=== PATIENT | female | born 1960 | race Caucasian/White ===

== ENCOUNTER 2019-09-24 22:29 | Inpatient (IN) ==
[2019-09-24] MEDS ORDERED: MORPHINE SULFATE 4 MG/ML SYRG IM ONE (22:52)
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
[2019-09-24 23:04] LABS: Hematocrit 41.5 % (37.0-47.0); Hemoglobin 13.8 gm/dL (12.5-16.0); Mean Corpuscular Hemoglobin 30.9 pg (27-31); Mean Corpuscular Hgb Conc 33.3 g/dl (32-36); Neutrophil # 6.5 K/mm3 (1.3-6.0); Neutrophil % 74.8 % (42-75.0); Platelet Count 230 K/mm3 (150-450); Red Blood Count 4.46 M/mm3 (4.2-5.4); Red Cell Distribution Width 12.3 % (11.5-14.0); White Blood Count 8.7 K/mm3 (4.0-10.5)
[2019-09-24] MEDS ORDERED: ONDANSETRON HCL/PF 2 MG/ML VIAL IV ONE (23:09)
[2019-09-24 23:18] LABS: Anion Gap 13.3 mmol/L (6.8-13.8); BUN/Creatinine Ratio 13.5 (9.0-21.6); Bilirubin, Total 1.1 mg/dL (0.0-1.1); Ca. Corrected For Albumin 9.2 mg/dL (8.4-10.2); Calcium * 9.5 mg/dL (7.9-10.9); Carbon Dioxide 27.7 mmol/L (24-32.6); Total Protein 7.6 gm/dL (6.2-8.2)
[2019-09-24] MEDS ORDERED: HYDROmorphone HCL 1 MG/ML DISP.SYRIN IV ONE (23:40)
[2019-09-25] MEDS ORDERED: HYDROmorphone HCL 1 MG/ML DISP.SYRIN IV ONE (01:01)
[2019-09-25] MEDS ORDERED: ONDANSETRON HCL/PF 2 MG/ML VIAL IV PRN (01:34)
[2019-09-25] MEDS ORDERED: MORPHINE SULFATE 4 MG/ML SYRG IV PRN (01:34)
[2019-09-25] MEDS ORDERED: HYDROmorphone HCL 1 MG/ML DISP.SYRIN IV PRN (01:34)
[2019-09-25] MEDS ORDERED: NORMAL SALINE 1,000 ML IV ONE (01:40)
[2019-09-25 06:25] LABS: Hematocrit 44.3 % (37.0-47.0); Hemoglobin 14.2 gm/dL (12.5-16.0); Mean Cell Volume 94.5 fl (78-100); Mean Corpuscular Hemoglobin 30.3 pg (27-31); Mean Corpuscular Hgb Conc 32.1 g/dl (32-36); Mean Platelet Volume 10.4 fl (8-12.5); Neutrophil # 6.3 K/mm3 (1.3-6.0); Neutrophil % 76.8 % (42-75.0); Platelet Count 214 K/mm3 (150-450); Red Blood Count 4.69 M/mm3 (4.2-5.4); Red Cell Distribution Width 12.1 % (11.5-14.0); White Blood Count 8.3 K/mm3 (4.0-10.5)
[2019-09-25 06:41] LABS: Albumin * 3.9 gm/dl (3.4-5.0); Anion Gap 11.2 mmol/L (6.8-13.8); BUN/Creatinine Ratio 14.5 (9.0-21.6); Bilirubin, Total 1.6 mg/dL (0.0-1.1); Calcium * 9.2 mg/dL (7.9-10.9); Carbon Dioxide 27.7 mmol/L (24-32.6); Potassium 3.9 mmol/L (3.4-4.6); Total Protein 7.4 gm/dL (6.2-8.2)
[2019-09-25] MEDS: MORPHINE SULFATE 4 MG/ML SYRG IV PRN ×4 (06:54→21:22)
[2019-09-25] MEDS: ONDANSETRON HCL/PF 2 MG/ML VIAL IV PRN ×3 (06:55→19:21)
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
--- NOTE | 2019-09-25 09:31 | CONS ---
HPI - General Date of Service: 09/25/19 Source: patient, family, RN/, RN notes reviewed, old records Exam Limitations: other - She has received pain medication - History of Present Illness Initial Comments: She reports that yesterday "she did did not feel well". She ate some crackers and pairs. She apparently developed some abdominal discomfort yesterday afternoon. She tried to eat some mashed potatoes for supper but then got nauseated and vomited. The pain continued and became worse. The pain was constant across the lower abdomen. She presented to the emergency room. She was found to have elevated liver function studies and a CT scan of the abdomen revealed a dilated common bile duct. She was admitted. Labs this morning show increase in bilirubin from 1.1 to 1.6. Her ALT has increased from 564 to 571. AST is decreased from 330 to 327 and alk phos has decreased from 453 to 450. Currently she has received pain medication and states her pain is some better. She has been to the emergency room twice on 09/13/2019 and 09/15/2019 for severe epigastric pain. On her initial visit she was having pain in the chest and they checked cardiac enzymes and EKG which were normal. CMP was normal. The pain went away. On the second occasion she was evaluated with ultrasound which showed stones. Liver function studies on both visits were normal. She has had some indigestion and nausea and bloating in the past but nothing like this. She is not bothered by heartburn and denies dysphagia or odynophagia. Her bowels used to be very regular but then more recently she is only been going twice a week because "she is not eating good". Her last bowel movement was on 09/21/2019. She was seen by me in the office on 09/21/2019. At that time discussion was had about laparoscopic cholecystectomy in which she was scheduled for that procedure on elective basis on 10/01/2019. Allergies/Adverse Reactions: Allergies bee venom protein (honey bee) Allergy (Verified 09/21/19 11:35) Hives codeine Allergy (Verified 09/21/19 11:35) Vomiting shellfish derived Allergy (Verified 09/21/19 11:35) Vomiting Home Medications: Home Medications Medication Instructions Recorded Last Taken HYDROcodone/ACETAMINOPHEN [[place] 1 tab PO Q4H PRN #40 tab 09/15/19 Unknown 5-325] Ondansetron [Zofran Odt] 4 mg PO Q6H PRN #20 tab 09/15/19 Unknown Medications - Medications Current Medications: Current Medications Sodium Chloride (Sodium Chloride 0.9%) 1,000 mls @ 100 mls/hr IV .Q10H ONE Stop: 09/25/19 11:39 Last Admin: 09/25/19 02:04 Dose: 100 mls/hr Documented by: Morphine Sulfate (Morphine Sulfate) 4 mg IV Q3H PRN PRN Reason: Mild to Moderate Pain Stop: 10/25/19 06:44 Last Admin: 09/25/19 06:54 Dose: 4 mg Documented by: Ondansetron HCl (Zofran) 8 mg IV Q6H PRN PRN Reason: Nausea Stop: 10/25/19 06:44 Last Admin: 09/25/19 06:55 Dose: 8 mg Documented by: Review of Systems - Review of Systems Generalized/Overall Review: Absent: Chills, Fever, Diaphoresis EENTM: Present: Other - She has not had jaundice. Absent: No Symptoms Reported Respiratory: Present: No Symptoms Reported Cardiac: Present: No Symptoms Reported Abdominal: Present: Abdominal Pain Genitourinary: Present: No Symptoms Reported, Other - Denies dark urine Musculoskeletal: Present: No Symptoms Reported Neurological: Present: No Symptoms Reported Skin: Present: No Symptoms Reported Physical Examination - Exam Vital Signs: Vital Signs - Last Taken Temp 36.6 C 09/25/19 06:45 Pulse 56 L 09/25/19 06:45 Resp 12 09/25/19 06:45 BP 146/65 H 09/25/19 06:45 Pulse Ox 100 09/25/19 06:45 O2 Oxygen Delivery Method Room Air Comprehensive Narative: 09/25/19 09:38 She has received some pain medication but can answer questions Constitutional: Present: Alert, Oriented x3, Cooperative, Well nourished, Mild distress ENT Exam: Present: normal ENT inspection, other - No scleral icterus Eye Exam: bilateral eye: normal inspection Neck: Present: full range of motion, normal inspection Respiratory: Present: no respiratory distress Cardiovascular/Chest: Present: regular rate, rhythm Abdomen: Present: other - Currently she denies abdominal pain or tenderness, specifically no tenderness in the right upper quadrant Extremity: Present: normal range of motion, normal inspection Skin Exam: Present: normal color Neurologic: Present: electrical tech/project manager II-XII nml as tested, normal cerebellar test, no motor/ sensory deficits Appearance: Present: appropriate appearance, appropriate insight, neat, no memory impairment Eye contact: Present: cooperative, good eye contact, normal speech Thoughts: Present: normal thought pattern - Results and Findings: Lab/Microbiology results last 24 hrs: Abnormal/Pending Laboratory Last 24 HRS 09/25/19 09/25/19 09/24/19 06:00 06:00 23:00 Neutrophils % 76.8 H Lymphocytes % 15.3 L Neutrophils # 6.3 H Lymphocytes # 1.26 L Random Glucose 119 H 152 H Total Bilirubin 1.6 H AST 327 H 330 H ALT 571 H 564 H Alkaline Phosphatase 450 H 453 H 09/24/19 23:00 Neutrophils % Lymphocytes % 14.8 L Neutrophils # 6.5 H Lymphocytes # 1.29 L Random Glucose Total Bilirubin AST ALT Alkaline Phosphatase CT scan shows dilated common bile duct. There is no inflammation around the gal lbladder and the stones are not visible on CT. - Assessments/Findings (1) Abdominal pain Diagnosis(s): She does have gallstones on ultrasound. The dilated duct and elevated liver function studies are worrisome for a common bile duct stone. I reviewed a pamphlet on gallbladder disease again with her and her . Would recommend an MRCP, as if she does have common duct stones and ERCP would be in order. We will follow the patient. Discussed with Dr. Valles Problem: Acute
[2019-09-25 09:53] LABS: Lipase 12200 U/L (73-393)
[2019-09-25 10:26] LABS: Amylase * 2382 U/L (25-115)
--- NOTE | 2019-09-25 13:17 | PN ---
Dictated Progress Note - Date and Time Seen: Date: 09/25/19 Time: 13:04 - Progress Note Narrative: Vital Signs - Last Taken Temp 36.8 C 09/25/19 09:57 Pulse 65 09/25/19 09:57 Resp 12 09/25/19 09:57 BP 139/56 09/25/19 09:57 Pulse Ox 100 09/25/19 09:57 Abnormal/Pending Laboratory Last 24 HRS 09/25/19 09/25/19 09/25/19 06:00 06:00 06:00 Neutrophils % 76.8 H Lymphocytes % 15.3 L Neutrophils # 6.3 H Lymphocytes # 1.26 L Random Glucose 119 H Total Bilirubin 1.6 H AST 327 H ALT 571 H Alkaline Phosphatase 450 H Amylase 2382 H Lipase 93719 H 09/24/19 09/24/19 23:00 23:00 Neutrophils % Lymphocytes % 14.8 L Neutrophils # 6.5 H Lymphocytes # 1.29 L Random Glucose 152 H Total Bilirubin AST 330 H ALT 564 H Alkaline Phosphatase 453 H Amylase Lipase Her MRCP does not show stones in the duct, although it is dilated. She does have markedly elevated amylase and lipase compatible with a passed common bile duct stone. Would recommend that she be placed in inpatient status with IV fluids and n.p.o. status and pain control. She is already scheduled for cholecystectomy on 10/01/2019 depending upon her progress. Case discussed with Dr. Valles, will follow the patient
[2019-09-25] MEDS: DEXTROSE 5%-NORMAL SALINE 1,000 ML IV PRN ×2 (14:03→23:55)
[2019-09-25] MEDS: ENOXAPARIN SODIUM 40 MG/0.4 ML SYRG SC SCH (14:25)
[2019-09-26 06:44] LABS: Hematocrit 38.4 % (37.0-47.0); Hemoglobin 12.6 gm/dL (12.5-16.0); Mean Cell Volume 95.3 fl (78-100); Mean Corpuscular Hemoglobin 31.3 pg (27-31); Mean Corpuscular Hgb Conc 32.8 g/dl (32-36); Mean Platelet Volume 10.5 fl (8-12.5); Neutrophil # 3.8 K/mm3 (1.3-6.0); Neutrophil % 59.7 % (42-75.0); Platelet Count 166 K/mm3 (150-450); Red Blood Count 4.03 M/mm3 (4.2-5.4); Red Cell Distribution Width 12.2 % (11.5-14.0); White Blood Count 6.3 K/mm3 (4.0-10.5)
[2019-09-26 06:48] LABS: Anion Gap 9.2 mmol/L (6.8-13.8); BUN/Creatinine Ratio 15.4 (9.0-21.6); Bilirubin, Total 1.5 mg/dL (0.0-1.1); Ca. Corrected For Albumin 8.6 mg/dL (8.4-10.2); Calcium * 8.1 mg/dL (7.9-10.9); Carbon Dioxide 27.3 mmol/L (24-32.6); Potassium 3.5 mmol/L (3.4-4.6)
[2019-09-26] MEDS: ONDANSETRON HCL/PF 2 MG/ML VIAL IV PRN ×3 (07:03→22:27)
[2019-09-26] MEDS ORDERED: MORPHINE SULFATE 4 MG/ML SYRG IV PRN (08:52)
--- NOTE | 2019-09-26 08:53 | PN ---
Subjective - Date and Time Seen Date: 09/26/19 Time: 08:44 Subjective Narrative: patient lipase/amylase has improved. patient is comfortable but sleepy. denies abdominal pain. Objective - Review of Systems Generalized/Overall Review: Denies: Chills, Fever EENTM: Denies: Blurred Vision Respiratory: Denies: Cough, Shortness of Breath, Orthopnea Cardiac: Denies: Chest Pain, Edema, Palpitations Abdominal: Denies: Nausea, Vomiting, Abdominal Pain Genitourinary Symptoms: Denies: Urgency, Frequency Musculoskeletal Complaints: Denies: Joint Pain, Back Pain Neurological: Denies: Headache Skin: Denies: Lesions, Rash Endocrine: Denies: Intolerance to Cold, Intolerance to Heat - Vitals Vitals: Last Vital Signs Temp 36.6 C 09/26/19 07:24 Pulse 63 09/26/19 07:24 Resp 14 09/26/19 07:24 BP 149/52 H 09/26/19 07:24 Pulse Ox 99 09/26/19 07:24 - Abnormal Lab Findings Abnormal Lab Findings: Abnormal Lab Results 09/25/19 09/26/19 09/26/19 Range/Units 06:00 06:23 06:23 RBC 4.03 L (4.2-5.4) M/mm3 MCH 31.3 H (27-31) pg Monocytes % 12.4 H (0.0-9) % Chloride 108 H (97-106) mmol/L Random Glucose 121 H (70-110) mg/dL Total Bilirubin 1.5 H (0.0-1.1) mg/dL AST 398 H (0-48) U/L ALT 510 H (19-67) U/L Alkaline Phosphatase 460 H (50-170) U/L Total Protein 6.0 L (6.2-8.2) gm/dL Albumin 3.0 L (3.4-5.0) gm/dl Amylase 2382 H 505 H (25-115) U/L Lipase 39973 H 2142 H (73-393) U/L - Exam Constitutional: Present: Alert, Oriented x3, Cooperative, Somnolent ENT Exam: Present: hearing grossly normal Neck: Present: supple. Absent: lymphadenopathy (R), lymphadenopathy (L) Respiratory: Present: normal breath sounds, No rales, No wheezing Cardiovascular/Chest: Present: regular rate, rhythm, no JVD, no murmur Abdomen: Present: Normal bowel sounds, soft, nontender, nondistended, negative Galloway sign Extremity: Present: no pedal edema, no calf tenderness Assessment/Plan Plan Narrative: Gail was admitted for abdominal pain with a known history of cholelithiasis. She was scheduled for laparoscopic cholecystectomy on October 01 but developed severe abdominal pain unrelieved by her pain medication and nausea medication. She was admitted for observation for her elevated LFTs and dilated common bile duct on CT scan. When we added amylase lipase to her blood work it was found to be severely elevated. She Was on n.p.o., IV fluids and pain management and her observation status was changed to an acute inpatient admission. Plan is to have her pancreatitis simmer down and pursue her laparoscopic cholecystectomy as scheduled or even earlier. Her MRCP did not show any common bile duct stone. She most likely have passed it out s her common bile duct was very dilated. We will decrease her narcotic dose as it looks like she is very sleepy while talking to me. - Problems/Diagnosis (1) Acute pancreatitis Problem: Acute Qualifiers: Pancreatitis type: biliary Acute pancreatitis complication: unspecified Qualified Code(s): K85.10 - Biliary acute pancreatitis without necrosis or infection (2) Choledocholithiasis Problem: Suspected (3) Elevated liver function tests Problem: Acute (4) RUQ pain Problem: Acute (5) Abdominal pain Problem: Acute (6) Cholelithiasis Problem: Acute
[2019-09-26] MEDS: DEXTROSE 5%-NORMAL SALINE 1,000 ML IV PRN ×2 (10:00→20:25)
[2019-09-26] MEDS: HYDROmorphone HCL 1 MG/ML DISP.SYRIN IV PRN ×4 (12:19→22:26)
[2019-09-26] MEDS: ENOXAPARIN SODIUM 40 MG/0.4 ML SYRG SC SCH (14:23)
[2019-09-26] MEDS: METOCLOPRAMIDE HCL 5 MG/ML VIAL IV PRN (17:16)
--- NOTE | 2019-09-26 17:18 | PN ---
Subjective - Date and Time Seen Date: 09/26/19 Time: 17:11 Subjective Narrative: She is having less abdominal pain, her main complaint is nausea. She was getting very nauseated with the pain medication. The Zofran has worked but only lasts about 3 hours. She states she has started feeling a little hungry but mainly thirsty Objective Objective Narrative: Her amylase and lipase have both decreased significantly - Review of Systems Generalized/Overall Review: Reports: Weakness. Denies: Chills, Fever EENTM: Reports: No Symptoms Reported Respiratory: Reports: No Symptoms Reported Cardiac: Reports: No Symptoms Reported Abdominal: Reports: Other - Less pain. She is still nauseated Genitourinary Symptoms: Reports: No Symptoms Reported Musculoskeletal Complaints: Reports: No Symptoms Reported Neurological: Reports: No Symptoms Reported - Vitals Vitals: Last Vital Signs Temp 36.9 C 09/26/19 13:34 Pulse 52 L 09/26/19 13:34 Resp 16 09/26/19 13:34 BP 140/59 H 09/26/19 13:34 Pulse Ox 97 09/26/19 13:34 - Abnormal Lab Findings Abnormal Lab Findings: Abnormal Lab Results 09/26/19 09/26/19 Range/Units 06:23 06:23 RBC 4.03 L (4.2-5.4) M/mm3 MCH 31.3 H (27-31) pg Monocytes % 12.4 H (0.0-9) % Chloride 108 H (97-106) mmol/L Random Glucose 121 H (70-110) mg/dL Total Bilirubin 1.5 H (0.0-1.1) mg/dL AST 398 H (0-48) U/L ALT 510 H (19-67) U/L Alkaline Phosphatase 460 H (50-170) U/L Total Protein 6.0 L (6.2-8.2) gm/dL Albumin 3.0 L (3.4-5.0) gm/dl Amylase 505 H (25-115) U/L Lipase 2142 H (73-393) U/L - Exam Constitutional: Present: Alert, Oriented x3, Well nourished, Mild distress ENT Exam: Present: normal ENT inspection, other - Sclera anicteric Neck: Present: full range of motion, normal inspection Breasts: Present: Exam deferred Respiratory: Present: no respiratory distress Cardiovascular/Chest: Present: regular rate, rhythm Abdomen: Present: other - No peritoneal signs Extremity: Present: normal range of motion, no calf tenderness Skin Exam: Present: normal color, warm/dry 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 Plan would be to remove her gallbladder when her amylase and lipase have returned to normal--- potentially 09/29/2019. I have discussed her case with Dr. Valles. I am out of town the next 2 days and so have discussed her care with Dr. Barron who will be covering. - Problems/Diagnosis (1) Abdominal pain Problem: Acute
[2019-09-27] MEDS: HYDROmorphone HCL 1 MG/ML DISP.SYRIN IV PRN (03:10)
[2019-09-27] MEDS: METOCLOPRAMIDE HCL 5 MG/ML VIAL IV PRN (03:16)
[2019-09-27 06:33] LABS: Hematocrit 38.8 % (37.0-47.0); Mean Cell Volume 93.5 fl (78-100); Mean Corpuscular Hemoglobin 31.3 pg (27-31); Mean Corpuscular Hgb Conc 33.5 g/dl (32-36); Mean Platelet Volume 10.2 fl (8-12.5); Neutrophil # 4.3 K/mm3 (1.3-6.0); Neutrophil % 70.5 % (42-75.0); Platelet Count 184 K/mm3 (150-450); Red Blood Count 4.15 M/mm3 (4.2-5.4); Red Cell Distribution Width 12.2 % (11.5-14.0); White Blood Count 6.1 K/mm3 (4.0-10.5)
[2019-09-27] MEDS: DEXTROSE 5%-NORMAL SALINE 1,000 ML IV PRN ×2 (06:49→17:15)
[2019-09-27 06:52] LABS: Anion Gap 10.6 mmol/L (6.8-13.8); BUN/Creatinine Ratio 6.1 (9.0-21.6); Bilirubin, Total 3.1 mg/dL (0.0-1.1); Ca. Corrected For Albumin 8.6 mg/dL (8.4-10.2); Calcium * 8.1 mg/dL (7.9-10.9); Carbon Dioxide 26.8 mmol/L (24-32.6); Potassium 3.4 mmol/L (3.4-4.6); Total Protein 6.2 gm/dL (6.2-8.2)
[2019-09-27] MEDS: ONDANSETRON HCL/PF 2 MG/ML VIAL IV PRN ×2 (06:57→13:15)
[2019-09-27 08:30] LABS: Albumin * 2.9 gm/dl (3.4-5.0); Bilirubin Direct 2.7 mg/dL (0.0-0.3); Bilirubin, Total 3.1 mg/dL (0.0-1.1); Bilirubin,Indirect 0.4 mg/dL (0.1-0.7); Total Protein 6.2 gm/dL (6.2-8.2)
--- NOTE | 2019-09-27 08:43 | DS ---
Transfer Discharge Summary - Diagnosis(s)/Problems (1) Abdominal pain Problem: Acute (2) Acute pancreatitis Problem: Acute (3) Cholelithiasis Narrative: on US 09/15/2019 and MRCP Problem: Acute (4) Elevated liver function tests Problem: Acute - Course Description of Stay: Gail Rivas is a 59-year-old white female with no significant past medical history in the past who was admitted on 09/25/2019 for abdominal pain. 10 days prior to admission the patient was seen in our emergency room for abdominal pain and an ultrasound at that time showed cholelithiasis without cholecystitis. Her liver function tests were within normal limits. She was sent home on pain medication and antinausea pill. She saw our surgeon, Dr. Medina on September 21 and she was scheduled for a laparoscopic cholecystectomy on October 01. On the night of her admission the patient abdominal pain was not relieved by her narcotic pain medication and her nausea was also not relieved by her oral Zofran and so she went to our emergency room. She said her abdominal pain was located right upper quadrant and epigastric area, was 10/10. This was associated with nausea and she vomited twice. In our emergency room she was was found to have an elevated AST/ALT/alkaline phosphatase with a normal total bilirubin. A CT scan of her abdomen and pelvis was done which showed mildly distended gallbladder no gallbladder stone, no cholecystitis, however there was nonspecific dilated common bile duct. She also had diverticulosis without diverticulitis as well as a septated kidney cyst. She was admitted for observation for pain control and trending of her liver function test. I added a lipase, amylase which was significantly elevated and her status was changed to acute in patient with the diagnosis of acute pancreatitis. MRCP showed distended gallbladder. Cholelithiasis. Distended common bile duct but did not show any evidence of stone. She was continued on n.p.o., IV fluids and pain control. Her amylase and lipase have significantly trended down, AST ALT also was trending down however alkaline phosphatase was increasing and this morning her bilirubin shot up to 3.1 with direct bilirubin of 2.7. Dr. Barron who is covering for Dr. Medina is recommending the patient be transferred to [facility] for ERCP. She started her on IV antibiotics and her repeat US is showing gallstones, possible acute cholecystitis /ascending cholangitis. recommend ERCP. She was accepted in [facility] and has a bed . Procedures Performed: none - Results and Findings Results and Findings: Laboratory Results - last 24 hr 09/27/19 09/27/19 09/27/19 06:20 06:25 06:25 WBC 6.1 RBC 4.15 L Hgb 13.0 Hct 38.8 MCV 93.5 MCH 31.3 H MCHC 33.5 RDW 12.2 Plt Count 184 MPV 10.2 Immature Gran % (Auto) 0.30 Immature Gran # (Auto) 0.02 Neutrophils % 70.5 Lymphocytes % 16.6 L Monocytes % 10.0 H Eosinophils % 2.3 Basophils % 0.3 Nucleated RBC % 0.0 Neutrophils # 4.3 Lymphocytes # 1.01 L Monocytes # 0.6 Eosinophils # 0.1 Absolute Basophils 0.0 Sodium 140 Plasma Sodium 141 Potassium 3.4 Chloride 106 Carbon Dioxide 26.8 Anion Gap 10.6 BUN 4 D Creatinine 0.66 Est GFR (Non-Af Amer) 98 BUN/Creatinine Ratio 6.1 L Random Glucose 148 H Calcium 8.1 Calcium Adj for Albumin 8.6 Total Bilirubin 3.1 H 3.1 H Direct Bilirubin 2.7 H Indirect Bilirubin 0.4 AST 229 H 223 H ALT 436 H 426 H Alkaline Phosphatase 558 H 540 H Total Protein 6.2 6.2 Albumin 2.9 L 3.0 L Amylase 244 H Lipase 964 H - Medications Medications: Active Medications Enoxaparin Sodium (Lovenox) 40 mg SC Q24H SHYAM Stop: 10/25/19 14:16 Last Admin: 09/26/19 14:23 Dose: 40 mg Documented by: Hydromorphone HCl (Dilaudid) 0.5 mg IV Q3H PRN PRN Reason: Severe Pain (Pain scale 7-10) Stop: 10/25/19 06:43 Last Admin: 09/27/19 03:10 Dose: 0.5 mg Documented by: Dextrose/Sodium Chloride (Dextrose 5%-0.9% Ns) 1,000 mls @ 100 mls/hr IV .Q10H PRN PRN Reason: HYDRATION Stop: 10/25/19 13:56 Last Admin: 09/27/19 06:49 Dose: 100 mls/hr Documented by: Metoclopramide HCl (Reglan) 10 mg IV Q6H PRN PRN Reason: Nausea Stop: 10/26/19 16:59 Last Admin: 09/27/19 03:16 Dose: 10 mg Documented by: Ondansetron HCl (Zofran) 8 mg IV Q6H PRN PRN Reason: Nausea Stop: 10/25/19 06:44 Last Admin: 09/27/19 06:57 Dose: 8 mg Documented by: Discontinued Medications Hydromorphone HCl (Dilaudid) 0.5 mg IV ONCE ONE Stop: 09/24/19 23:41 Last Admin: 09/24/19 23:47 Dose: 0.5 mg Documented by: Hydromorphone HCl (Dilaudid) 0.5 mg IV ONCE ONE Stop: 09/25/19 01:02 Last Admin: 09/25/19 01:08 Dose: 0.5 mg Documented by: Hydromorphone HCl (Dilaudid) 0.5 mg IV Q3H PRN PRN Reason: Pain Stop: 10/25/19 01:35 Last Admin: 09/25/19 02:19 Dose: 0.5 mg Documented by: Sodium Chloride (Sodium Chloride 0.9%) 1,000 mls @ 100 mls/hr IV .Q10H ONE Stop: 09/25/19 11:39 Last Infusion: 09/25/19 13:27 Dose: Infused Documented by: Morphine Sulfate (Morphine Sulfate) 4 mg IM ONCE ONE Stop: 09/24/19 22:53 Last Admin: 09/24/19 23:03 Dose: 4 mg Documented by: Morphine Sulfate (Morphine Sulfate) 4 mg IV Q3H PRN PRN Reason: Pain Stop: 10/25/19 01:46 Last Admin: 09/25/19 03:09 Dose: 4 mg Documented by: Morphine Sulfate (Morphine Sulfate) 4 mg IV Q3H PRN PRN Reason: Mild to Moderate Pain Stop: 10/25/19 06:44 Last Admin: 09/25/19 21:22 Dose: 4 mg Documented by: Ondansetron HCl (Zofran) 8 mg IV ONCE ONE Stop: 09/24/19 23:10 Last Admin: 09/24/19 23:19 Dose: 8 mg Documented by: - Disposition Disposition: Short Term Hospital Inpatient Condition: Stable Discharge Date: 09/27/19 Discharge Time: 04:30
[2019-09-27] MEDS ORDERED: CEFTAZIDIME 1 GM in DEXTROSE 5 % IN WATER 100 ML IV SCH ×2 (10:45)
--- NOTE | 2019-09-27 10:53 | PN ---
Dictated Progress Note - Date and Time Seen: Date: 09/27/19 Time: 10:51 - Progress Note Narrative: pt is feeling well, but direct bilirubin is elevated today Vital Signs - Last Taken Temp 37 C 09/27/19 07:05 Pulse 55 L 09/27/19 07:05 Resp 16 09/27/19 07:05 BP 141/63 H 09/27/19 07:05 Pulse Ox 98 09/27/19 07:05 Abnormal/Pending Laboratory Last 24 HRS 09/27/19 09/27/19 09/27/19 06:25 06:25 06:20 RBC 4.15 L MCH 31.3 H Lymphocytes % 16.6 L Monocytes % 10.0 H Lymphocytes # 1.01 L BUN/Creatinine Ratio 6.1 L Random Glucose 148 H Total Bilirubin 3.1 H 3.1 H Direct Bilirubin 2.7 H AST 223 H 229 H ALT 426 H 436 H Alkaline Phosphatase 540 H 558 H Albumin 3.0 L 2.9 L Amylase 244 H Lipase 964 H NAD abd soft, non distended, min TTP non labored Imp cholelithiasis choledocholithiasis elevated D. bili resolving pancreatitis Plan: needs to transfer for ERCP Called [facility], recommened US and antibiotics Discussed with Dr. Reena Ryan scheduled for Tuesday
[2019-09-27] MEDS: ENOXAPARIN SODIUM 40 MG/0.4 ML SYRG SC SCH (15:15)
[2019-09-27 19:31] VITALS: BP 164/62
== END 2019-09-27 17:40 | disposition short-term general hospital (02) | DRG 439 ==
LOC: MS 22:29 → ER 22:29 → OBSVTOIN 09-25 01:40 → MS 09-25 02:00
PROVIDERS: ADMIT Internal Medicine; ATTEND Internal Medicine
DX: R94.5 Abnormal results of liver function studies; R10.11 Right upper quadrant pain; K80.20 Calculus of gallbladder without cholecystitis without obstruction; K80.00 Calculus of gallbladder with acute cholecystitis without obstruction; K85.10 Biliary acute pancreatitis without necrosis or infection
CPT/HCPCS: 36415; 74000; 74018; 74177; 74181; 76705; 80053; 80076; 82150; 83690; 85025; 96372; 96374; 96375; 96376; 99284; J2405; Q9967